=== PATIENT | male | born 1995 | race Hispanic/Latino ===

== ENCOUNTER 2021-06-06 01:28 | Emergency (ER) | payer BC ==
[~2021-06-06] VITALS: Ht 165.1 cm; Wt 52.2 kg
[2021-06-06] MEDS ORDERED: LORAZEPAM 1 MG TAB PO PRN (01:45)
== END 2021-06-06 02:41 | disposition home or self-care (01) ==
LOC: ER 01:42
DX: F41.0 Panic disorder [episodic paroxysmal anxiety] (principal)
CPT/HCPCS: 99282